=== PATIENT | male | born 1975 | race Hispanic/Latino ===

== ENCOUNTER → 2023-09-15 | Outpatient (CLI) | payer BC, OTHER | END | disposition home or self-care (01) | LOC: EDUNIT# 07-18 14:00 → SHCH 15:48 | PROVIDERS: ATTEND Internal Medicine Cardiovascular Disease | DX: I25.10 Atherosclerotic heart disease of native coronary artery without angina pectoris (principal) | CPT/HCPCS: 93306 ==

== ENCOUNTER → 2023-09-18 | Outpatient (CLI) | payer BC, OTHER ==
[~2023-09-18] MED LIST: REGADENOSON 0.4 MG/5 ML PF SYG IVP ONE
== END | disposition home or self-care (01) ==
LOC: SHCH 07:36
PROVIDERS: ATTEND Internal Medicine Cardiovascular Disease
DX: I25.10 Atherosclerotic heart disease of native coronary artery without angina pectoris (principal)
CPT/HCPCS: 78452; 96374; 93017; J2785; A9500 ×2

== ENCOUNTER → 2023-10-07 | Outpatient (CLI) | payer BC, OTHER | END | disposition home or self-care (01) | LOC: CANPRECLI → EDUNIT# 08-25 08:30 → SHCH 08:21 | PROVIDERS: ATTEND Internal Medicine Cardiovascular Disease | DX: I87.2 Venous insufficiency (chronic) (peripheral) (principal); R60.9 Edema, unspecified | CPT/HCPCS: 93970 ==

== ENCOUNTER 2024-01-12 17:38 | Emergency (ER) | payer OTHER ==
[~2024-01-12] VITALS: Ht 188 cm; Wt 190.1 kg
[2024-01-12 18:18] LABS: BASOPHILS # (AUTO) 0.03 K/uL (0.00-0.20); BASOPHILS % (AUTO) 0.4 % (0.0-5.0); EOSINOPHILS # (AUTO) 0.19 K/uL (0.00-0.70); EOSINOPHILS % (AUTO) 2.7 % (0.0-8.0); HEMATOCRIT 50.3 % (42-54); IMMATURE GRANULOCYTE ABSOLUTE 0.01 K/uL (0-1); LYMPHOCYTES # (AUTO) 2.9 K/uL (1.0-4.8); LYMPHOCYTES % (AUTO) 40.3 % (21.0-51.0); MEAN CORPUSCULAR HEMOGLOBIN 28.5 pg (27.0-33.0); MEAN CORPUSCULAR HGB CONC 33.6 g/dL (32.0-36.0); MEAN CORPUSCULAR VOLUME 84.8 fL (79-99); MONOCYTES # (AUTO) 0.6 K/uL (0.1-1.0); MONOCYTES % (AUTO) 8.8 % (3.0-13.0); NEUTROPHILS # (AUTO) 3.4 K/uL (1.8-7.7); NEUTROPHILS % (AUTO) 47.7 % (40.0-77.0); PLATELET COUNT (AUTO) 145 K/uL (130-400); RED BLOOD CELL COUNT(AUTO) 5.93 MIL/uL (4.50-6.20); RED CELL DISTRIBUTION WIDTH 14.3 % (11.0-15.5); WHITE BLOOD COUNT (AUTO) 7.1 K/uL (4.8-10.8)
[2024-01-12 18:31] LABS: INR 1.01 (0.85-1.15); PROTHROMBIN TIME 11.9 SEC (9.6-11.6)
[2024-01-12 18:33] LABS: POTASSIUM 3.9 mmol/L (3.5-5.1)
[2024-01-12 18:37] LABS: ALBUMIN 3.5 g/dL (3.5-5.0); BILIRUBIN,TOTAL 1.2 mg/dL (0.2-1.0); MAGNESIUM 2.2 mg/dL (1.80-2.40); TOTAL PROTEIN, SERUM 7.4 g/dL (6.0-8.3)
[2024-01-12 18:52] LABS: B-TYPE NATRIURETIC PEPTIDE < 5 pg/mL (0-100)
[2024-01-12] MEDS ORDERED: DICL20GE TP (19:12)
[2024-01-12 20:19] VITALS: BP 143/87; PULSE 88; RESP 18; O2SAT 98
== END 2024-01-12 20:20 | disposition home or self-care (01) ==
LOC: EDH 17:38
DX: S23.3XXA Sprain of ligaments of thoracic spine, initial encounter (principal); E11.9 Type 2 diabetes mellitus without complications; E78.00 Pure hypercholesterolemia, unspecified; I10 Essential (primary) hypertension; Z88.0 Allergy status to penicillin; Z88.2 Allergy status to sulfonamides; Z90.49 Acquired absence of other specified parts of digestive tract; Z95.5 Presence of coronary angioplasty implant and graft; X58.XXXA Exposure to other specified factors, initial encounter; Y93.89 Activity, other specified; Y92.89 Other specified places as the place of occurrence of the external cause; Y99.8 Other external cause status
CPT/HCPCS: 36415; 71045; 80053; 82550; 83735; 83880; 84484; 85025; 85610; 93005